=== PATIENT | female | born 1955 | race Hispanic/Latino ===

== ENCOUNTER 2024-09-06 02:29 | Emergency (ER) | payer MEDICARE ==
[~2024-09-06] VITALS: Ht 154.9 cm; Wt 68.0 kg
[2024-09-06 02:40] VITALS: TEMP 98
[2024-09-06] MEDS ORDERED: SODIUM CHLORIDE 0.9% 1000ML 1,000 ML IV ONE (03:00)
[2024-09-06] MEDS ORDERED: HALOPERIDOL LACTATE 5 MG/ML VIAL IV ONE (03:00)
[2024-09-06] MEDS: HALOPERIDOL LACTATE 5 MG/ML VIAL IM ONE (03:09)
[2024-09-06 03:27] LABS: CLARITY,URINE CLEAR (CLEAR); COLOR,URINE YELLOW (YELLOW); LEUKOCYTE ESTERASE ,URINE NEGATIVE (NEGATIVE); NITRITE,URINE NEGATIVE (NEGATIVE); PH,URINE 6 (5 - 7); PROTEIN,URINE DIPSTICK NEGATIVE (NEGATIVE)
[2024-09-06 03:28] LABS: BILIRUBIN,URINE NEGATIVE (NEGATIVE); EPITHELIAL CELLS,URINE FEW /LPF; GLUCOSE, URINE NEGATIVE (NEGATIVE); KETONES,URINE NEGATIVE (NEGATIVE); RBC,URINE 0-5 /HPF (0-5); URINE UROBILINOGEN 0.2 mg/dL (0.2 - 1); WBC,URINE (MAN) 0-5 /HPF (0-5)
[2024-09-06 03:42] LABS: BACTERIA,URINE MODERATE /HPF; HYALINE CASTS >15 (0-1); MUCUS,URINE MANY
[2024-09-06 03:45] VITALS: PULSE 70; RESP 16; O2SAT 98
== END 2024-09-06 04:10 | disposition home or self-care (01) ==
LOC: ER 02:49
DX: R10.13 Epigastric pain (principal); K44.9 Diaphragmatic hernia without obstruction or gangrene; R11.2 Nausea with vomiting, unspecified; I10 Essential (primary) hypertension; E03.9 Hypothyroidism, unspecified; I25.10 Atherosclerotic heart disease of native coronary artery without angina pectoris; F41.9 Anxiety disorder, unspecified; R94.31 Abnormal electrocardiogram [ECG] [EKG]; Z95.5 Presence of coronary angioplasty implant and graft
CPT/HCPCS: 81001; 93005; 99282; J1630